=== PATIENT | female | born 1980 | race Two or more races ===

== ENCOUNTER 2021-04-06 19:39 | Emergency (ER) | payer MEDICAID, OTHER ==
[~2021-04-06] VITALS: Ht 162.6 cm; Wt 68.0 kg
[2021-04-07] MEDS ORDERED: TETRACAINE HCL 0.5% OPTH(EYE) SOLN 4ML ONE (02:28)
[2021-04-07] MEDS ORDERED: TETRACAINE HCL 0.5% OPTH(EYE) SOLN 4ML EACHEYE ONE (02:45)
[2021-04-07 02:59] VITALS: BP 124/84
== END 2021-04-07 03:04 | disposition home or self-care (01) ==
LOC: ER 19:39
DX: S05.02XA Injury of conjunctiva and corneal abrasion without foreign body, left eye, initial encounter (principal); S05.01XA Injury of conjunctiva and corneal abrasion without foreign body, right eye, initial encounter; X58.XXXA Exposure to other specified factors, initial encounter; Y93.89 Activity, other specified; Y92.89 Other specified places as the place of occurrence of the external cause; Y99.8 Other external cause status
CPT/HCPCS: 70450